=== PATIENT | male | born 1990 | race Caucasian/White ===

== ENCOUNTER 2018-03-20 07:05 | Day surgery (SDC) | payer OTHER ==
[~2018-03-20] VITALS: Ht 152.4 cm; Wt 99.8 kg
[~2018-03-20 07:05] MED LIST: ALLEGRA ALLERG180 MG PO
--- NOTE | 2018-03-20 09:37 | NUR ---
OU DRY AND CRUSTY AND REDDENED
--- NOTE | 2018-03-20 11:15 | NUR ---
03/20/18 Aron4 Moriah Qureshi 1059 PT ARRIVED TO PACU ON 10L, PT NONAROUSABLE. RESP EVEN AND UNLABORED. JAW TRUST NEEDED TO MAINTAIN AIRWAY.
--- NOTE | 2018-03-20 12:00 | NUR ---
PT ARRIVES TO DS RM 2 AWAKE AND ALERT. PT REPEATS "DONE!" MULTIPLE TIMES AND WOULD LIKE TO GO HOME. PT IS REASSURED OF DC CRITERIA. VS OBTAINED. PT TAKES OFF BP CUFF AND SCD'S. PT FAMILY SITTING BEDSIDE. PT PROVIDED WATER AND APPLE JUICE IN CUP WITHOUT STRAW DUE TO EXTRACTION. PT VERY RESTLESS IN BED. WILL CONTINUE TO MONITOR.
[2018-03-20] MEDS ORDERED: NORCO 5-325 TA1 EACH PO (12:24)
--- NOTE | 2018-03-20 13:09 | NUR ---
PT HERE FOR 1 HOUR, RESTING IN BED WATCHING TV AND CONVERSING WITH FAMILY AT BEDSIDE. VS TAKEN AND IV REMOVED, PT TOLERATES WELL. PT SLOWLY SIPPED ON WATER AND APPLE JUICE DURING HOUR. PT DID NOT VOID PRIOR TO DC'ING. DC INSTRUCTIONS GIVEN IN PRESENCE OF PT, PT MOTHER AND SISTER. FAMILY VERBALIZES AN UNDERSTANDING OF DC INSTRUCTIONS AND ALL QUESTIONS ANSWERED. PT DC'S VIA WC FROM RM 2 HOME.
== END 2018-03-20 12:55 | disposition home or self-care (01) ==
LOC: OPS 07:05 → DS 07:05 → OPS 08:45
PROVIDERS: Dentist
PROC: 0CDWXZ0 Extraction of Upper Tooth, Single, External Approach (ICD-10-PCS; 2018-03-20)
PROC: 0CRWXJ1 Replacement of Upper Tooth, Multiple, with Synthetic Substitute, External Approach (ICD-10-PCS; principal; 2018-03-20 08:45)
DX: K02.9 Dental caries, unspecified (principal); J30.9 Allergic rhinitis, unspecified; M50.30 Other cervical disc degeneration, unspecified cervical region; Q90.9 Down syndrome, unspecified; Z88.2 Allergy status to sulfonamides; Z98.890 Other specified postprocedural states; Z79.899 Other long term (current) drug therapy
CPT/HCPCS: 00170; J0330; J2704; J3010; J7120